=== PATIENT | male | born 1980 | race Caucasian/White ===

== ENCOUNTER 2022-08-25 02:12 | Emergency (ER) | payer MEDICARE, SELFPAY ==
[2022-08-25 02:25] VITALS: BP 137/110; PULSE 123; RESP 18; TEMP 37.1; O2SAT 96; BMI 23.1
[2022-08-25 02:27] VITALS: BP 153/96; PULSE 115; RESP 18; O2SAT 98
[2022-08-25 02:40] LABS: Basophils % 0.1 %; Eosinophils % 0.1 %; Hematocrit 38.9 % (42.0-52.0); Hemoglobin 13.5 g/dL (11.7-16.6); Lymphocytes # 0.2 10^3/uL (0.8-4.8); Lymphocytes % 0.9 %; Mean Corpuscular HGB Conc 34.7 g/dL (30.0-36.0); Mean Corpuscular Hemoglobin 27.8 pg (28.0-34.0); Mean Corpuscular Volume 80.2 fl (80-94); Mean Platelet Volume 9.1 fL (7.4-10.4); Monocytes # 0.8 10^3/uL (0.2-0.9); Neutrophils # 24.84 10^3/uL (1.8-7.7); Neutrophils % 95.5 %; Nucleated Red Blood Cells % 0 %; Platelet Count 672 10^3/cmm (130-400); Red Blood Count 4.85 10^6/uL (4.1-5.3); Red Cell Distribution Width 13.4 % (12.1-15.1)
--- NOTE | 2022-08-25 02:40 | ED_ITS ---
Documented by User: RYAN Beasley 08/25/22 03:34 HPI - Nausea/Vomiting/Diarrhea General: Chief complaint: Nausea/Vomiting/Diarrhea Stated complaint: vomiting Time Seen by Provider: 08/25/22 02:34 History of Present Illness: Patient is a 42-year-old male that comes to the ED with nausea and vomiting. Patient says this is a common occurrence for him and he has the cyclic vomiting episodes once every couple months. Past medical history of chronic kidney disease and states that he used to be on dialysis but is not currently on it anymore. He states that his creatinine level is usually around 5 or 6. This current episode started yesterday and he was unable to keep any food or fluids down. He went to the emergency department in [facility] this morning and they checked him out and got his symptoms under control he was discharged home. He rode up with his family here to [place] this evening and his nausea and vomiting symptoms started coming back. He forgot to bring his Zofran and he left it at home back in [facility]. He denies any fevers, chest pain, shortness of breath, abdominal pain, bladder or bowel symptoms. He is a chronic marijuana user and doctors of told him in the past that it could be the cause of his cyclic vomiting episodes. Associated nausea: Yes Associated symtoms: Reports nausea; Denies change in vision, chest pain, dysuria, fatigue, headache(s) or palpitations Review of Systems 2 Const: Denies: fever(s), chills or fatigue Eyes: Denies: change in vision or eye discomfort ENMT: Denies: throat pain, odynophagia, nasal discharge or nasal congestion Card: Denies: chest pain, palpitations, edema, swelling of feet/ankles, dyspnea on exertion or orthopnea Resp: Denies: dyspnea, productive cough or non-productive cough GI: Reports: nausea and vomiting; Denies: abdominal pain, diarrhea, constipation or hematochezia : Denies: flank pain, difficulty urinating, dysuria or hematuria Musc: Denies: neck pain, back pain or extremity swelling Skin/Breast: Denies: rash or new lesions Neuro: Denies: headache(s), numbness in extremities or weakness in extremities [facility] ED PFSH: Medical History (Updated 07/01/23 @ 03:32 by RYAN Beasley) CKD (chronic kidney disease) Cyclic vomiting syndrome No pertinent family history Physical Exam Narrative: EXAM NARRATIVE: Patient appears nontoxic and in no acute distress or pain. He sitting comfortably on exam bed when in the room and no active vomiting seen. Const: COMMON NORMALS: no acute distress, patient oriented x3 and alert GENERAL APPEARANCE: cooperative and comfortable HENMT: COMMON NORMALS: normocephalic HEAD & SCALP: normocephalic MOUTH: Normal oral and palatal mucosa present THROAT: posterior oropharynx normal and uvula midline Neck/C-Spine: COMMON NORMALS: supple GENERAL: Yes normal visual inspection Resp: COMMON NORMALS: normal respiratory effort, No retractions, No use of accessory muscles and clear to auscultation bilaterally AUSCULTATION: clear to auscultation bilaterally Cardio: COMMON NORMALS: regular rate, regular rhythm, S1 normal heart sound p resent, S2 normal heart sound present, No gallops present (Cardio), No clicks present (Cardio), No murmurs present (Cardio) and Peripheral pulses 2+ throughout RATE: regular rate RHYTHM: regular rhythm HEART SOUNDS: S1 normal heart sound present and S2 normal heart sound present PERIPHERAL PULSES: Peripheral pulses 2+ throughout GI: COMMON NORMALS: Normal to inspection, nondistended, normoactive bowel sounds present, Soft to palpation, non-tender and no masses PALPATION: Yes Soft to palpation : COMMON NORMALS: Yes no CVA tenderness BLADDER/KIDNEY EXAM: Yes no CVA tenderness Back/Pelvis: COMMON NORMALS: no CVA tenderness Extremity: COMMON NORMALS: normal to inspection Neuro: COMMON NORMALS: patient oriented x3 SENSORIUM/ORIENTATION: Yes alert GAIT: Yes Normal gait present Skin: GENERAL SKIN EXAM: dry skin Course Vital Signs: Vital signs: Vital Signs Temperature 98.7 F 08/25/22 02:25 Pulse Rate 115 H 08/25/22 02:27 Respiratory Rate 18 08/25/22 02:27 Blood Pressure 153/96 08/25/22 02:27 Pulse Oximetry 98 08/25/22 02:27 Oxygen Delivery Me thod Room Air 08/25/22 02:27 MDM - Nausea/Vomiting/Diarrhea Medical Decision Making Patient is a 42-year-old male that comes to the ED with nausea and vomiting. Patient says this is a common occurrence for him and he has the cyclic vomiting episodes once every couple months. Past medical history of chronic kidney disease and states that he used to be on dialysis but is not currently on it anymore. He states that his creatinine level is usually around 5 or 6. This current episode started yesterday and he was unable to keep any food or fluids down. He went to the emergency department in [facility] this morning and they checked him out and got his symptoms under control he was discharged home. He rode up with his family here to [place] this evening and his nausea and vomiting symptoms started coming back. He forgot to bring his Zofran and he left it at home back in [facility]. He denies any fevers, chest pain, shortness of breath, abdominal pain, bladder or bowel symptoms. He is a chronic marijuana user and doctors of told him in the past that it could be the cause of his cyclic vomiting episodes. Pulse 123 but the rest of vitals are stable. Patient appears nontoxic in no acute distress or pain. He is sitting comfortably on exam bed when I entered the room and he is having no active vom iting. No CVA tenderness and no abdominal tenderness noted. Rest of exam is benign. White blood cell count is 26, creatinine of 7.1 and BUN of 57. Rest of CBC and CMP are unremarkable. UA was unremarkable. His labs from approximately less than 24 hours ago at [facility] in [facility] on August 24, 2022 a white blood cell count of 22.2, creatinine of 6.4 and BUN of 52, so there has not been much of an acute change from then. I talked with patient about the possibility of being admitted here for dialysis, but patient refused. He refuses dialysis and admission. Patient says he has a appointment with his kidney doctor on August 27, 2022. I discussed patient case with Dr. Callejas and he agreed with plan. He was diagnosed with cyclic vomiting syndrome and CKD and was stable for discharge home. Patient was signed out to Dr. Callejas. Patient started on 2 L of IV fluids and gi jossue Zofran and so far his symptoms are improving and he is not having any episodes of emesis. Patient pending discharge if symptoms are controlled once second liter of fluids is complete. Medical Records I reviewed the patient's medical records. member services coordinator contacted [facility] in [facility] which is where patient was seen in the ED for same complaint on the morning of August 24, 2022. We requested his labs from that morning and they gave us a verbal report. Patient's white blood cell count was 22.2, creatinine 6.4, BUN of 52. Lab Data I reviewed the patient's lab results. 08/25/22 02:30 08/25/22 02:30 Laboratory Results WBC 26.0 10^3/uL (4.0-10.0) H 08/25/22 02:30 RBC 4.85 10^6/uL (4.1-5.3) 08/25/22 02:30 Hgb 13.5 g/dL (11.7-16.6) 08/25/22 02:30 Hct 38.9 % (42.0-52.0) L 08/25/22 02:30 MCV 80.2 fl (80-94) 08/25/22 02:30 MCH 27.8 pg (28.0-34.0) L 08/25/22 02:30 MCHC 34.7 g/dL (30.0-36.0) 08/25/22 02:30 RDW 13.4 % (12.1-15.1) 08/25/22 02:30 Plt Count 672 10^3/cmm (130-400) H 08/25/22 02:30 MPV 9.1 fL (7.4-10.4) 08/25/22 02:30 Neut % (Auto) 95.5 % 08/25/22 02:30 Lymph % (Auto) 0.9 % 08/25/22 02:30 [place] % (Auto) 3.0 % 08/25/22 02:30 Eos % (Auto) 0.1 % 08/25/22 02:30 Baso % (Auto) 0.1 % 08/25/22 02:30 Neut # (Auto) 24.84 10^3/uL (1.8-7.7) H 08/25/22 02:30 Lymph # (Auto) 0.2 10^3/uL (0.8-4.8) L 08/25/22 02:30 [place] # (Auto) 0.8 10^3/uL (0.2-0.9) 08/25/22 02:30 Eos # (Auto) 0.0 10^3/uL (0.0-0.8) 08/25/22 02:30 Baso # (Auto) 0.0 10^3/uL (0.0-0.1) 08/25/22 02:30 Nucleated RBC % (auto) 0 % 08/25/22 02:30 Nucleated RBCs # 0.0 /100WBC 08/25/22 02:30 Sodium 137 mmol/L (136-145) 08/25/22 02:30 Potassium 3.4 mmol/L (3.5-5.1) L 08/25/22 02:30 Chloride 87 mmol/L (98-107) L 08/25/22 02:30 Carbon Dioxide 25 mmol/L (22-29) 08/25/22 02:30 Anion Gap 28.4 (5-19) H 08/25/22 02:30 BUN 57 mg/dL (6-20) H 08/25/22 02:30 Creatinine 7.1 mg/dL (0.7-1.2) H* 08/25/22 02:30 GFR Calculation 8.6 mL/min (90-130) L 08/25/22 02:30 Glucose 198 mg/dL (65-115) H 08/25/22 02:30 Calculated Osmolality 305 mOsm/kg (285-295) H 08/25/22 02:30 Calcium 10.5 mg/dL (8.5-10.5) 08/25/22 02:30 Total Bilirubin 0.5 mg/dL (0.15-1.2) 08/25/22 02:30 AST 30 U/L (0-40) 08/25/22 02:30 ALT 14 U/L (0-41) 08/25/22 02:30 Alkaline Phosphatase 141 U/L (40-130) H 08/25/22 02:30 Total Protein 8.4 g/dL (6.6-8.7) 08/25/22 02:30 Albumin 5.1 g/dL (3.5-5.2) 08/25/22 02:30 Globulin 3.3 g/dL (1.3-4.6) 08/25/22 02:30 Lipase 127 U/L (13-60) H 08/25/22 02:30 Urine Color Yellow (Yellow) 08/25/22 03:11 Urine Appearance Clear (CLEAR) 08/25/22 03:11 Urine pH 6 (5-7) 08/25/22 03:11 Ur Specific [place] 1.010 (1.005-1.030) 08/25/22 03:11 Urine Protein 3+ (Negative) H 08/25/22 03:11 Urine Glucose (UA) Norm (Normal) 08/25/22 03:11 Urine Ketones 1+ (Negative) H 08/25/22 03:11 Urine Blood 3+ (Negative) H 08/25/22 03:11 Urine Nitrate Negative (Negative) 08/25/22 03:11 Urine Bilirubin Neg (Negative) 08/25/22 03:11 Urine Urobilinogen Norm mg/dL (Negative) 08/25/22 03:11 Ur Leukocyte Esterase Negative (Negative) 08/25/22 03:11 Urine RBC 5-10 /hpf (0-2) H 08/25/22 03:11 Urine WBC 0-4 /hpf (0-5) H 08/25/22 03:11 Ur Squamous Epith Cells 0-4 /hpf (0-5) H 08/25/22 03:11 Amorphous Sediment Not Reportable 08/25/22 03:11 Urine Bacteria Trace /hpf (NONE) 08/25/22 03:11 Discharge Plan Discharge Patient Disposition: Home Clinical Impression: Cyclic vomiting syndrome, CKD (chronic kidney disease) Condition: Stable Discharge Orders: Discharge ED (Routine); Ordered 08/25/22 Ordered By: Shakeel Callejas Referrals: Rosalia Funk MD [Primary Care Provider] - Discharge Diet: Advance as tolerated and Clear Liquid Discharge Activity: Increase activity as tolerated Patient Instructions: Chronic Kidney Disease (ED), Cyclic Vomiting Syndrome (ED) Activity Restrictions/Additional Instructions: Follow-up with your doctor at your scheduled appointment on August 27 for follow- up. Continue taking all home medications as previously prescribed. Clear liquid diet for the next 12 to 24 hours and slowly advance diet as tolerated. Return to the ER or your medical provider if condition worsens. Please read and understand discharge instructions. Thank you for choosing [facility] for your healthcare needs today. Please realize this is an emergency room and that we are providing you with a medical screening exam and this may not be complete and all inclusive of all the testing and or work up that you may need to determine your ailment or severity of your illness. It is very important that you follow up as instructed or that you return to the Emergency Department should you have concerns or if your condition changes or worsens in any way. Coding Level of Care Code ED Trailer Steerer for Charlie Fwd Documented by User: Shakeel Callejas, 08/25/22 04:06 HPI - Nausea/Vomiting/Diarrhea General: Chief complaint: Nausea/Vomiting/Diarrhea Stated complaint: vomiting Time Seen by Provider: 08/25/22 02:34 [facility] ED PFSH: Medical History (Updated 08/25/22 @ 03:32 by RYAN Beasley) CKD (chronic kidney disease) Cyclic vomiting syndrome No pertinent family history Course Vital Signs: Vital signs: Vital Signs Temperature 98.7 F 08/25/22 02:25 Pulse Rate 115 H 08/25/22 02:27 Respiratory Rate 18 08/25/22 02:27 Blood Pressure 153/96 08/25/22 02:27 Pulse Oximetry 98 08/25/22 02:27 Oxygen Delivery Me thod Room Air 08/25/22 02:27 MDM - Nausea/Vomiting/Diarrhea Medical Decision Making Patient is a 42-year-old male that comes to the ED with nausea and vomiting. Patient says this is a common occurrence for him and he has the cyclic vomiting episodes once every couple months. Past medical history of chronic kidney disease and states that he used to be on dialysis but is not currently on it anymore. He states that his creatinine level is usually around 5 or 6. This current episode started yesterday and he was unable to keep any food or fluids down. He went to the emergency department in [facility] this morning and they checked him out and got his symptoms under control he was discharged home. He rode up with his family here to [place] this evening and his nausea and vomiting symptoms started coming back. He forgot to bring his Zofran and he left it at home back in [facility]. He denies any fevers, chest pain, shortness of breath, abdominal pain, bladder or bowel symptoms. He is a chronic marijuana user and doctors of told him in the past that it could be the cause of his cyclic vomiting episodes. Pulse 123 but the rest of vitals are stable. Patient appears nontoxic in no acute distress or pain. He is sitting comfortably on exam bed when I entered the room and he is having no active vom iting. No CVA tenderness and no abdominal tenderness noted. Rest of exam is benign. White blood cell count is 26, creatinine of 7.1 and BUN of 57. Rest of CBC and CMP are unremarkable. UA was unremarkable. His labs from approximately less than 24 hours ago at [facility] in [facility] on August 24, 2022 a white blood cell count of 22.2, creatinine of 6.4 and BUN of 52, so there has not been much of an acute change from then. I talked with patient about the possibility of being admitted here for dialysis, but patient refused. He refuses dialysis and admission. Patient says he has a appointment with his kidney doctor on August 27, 2022. I discussed patient case with Dr. Callejas and he agreed with plan. He was diagnosed with cyclic vomiting syndrome and CKD and was stable for discharge home. Patient was signed out to Dr. Callejas. Patient started on 2 L of IV fluids and gi jossue Zofran and so far his symptoms are improving and he is not having any episodes of emesis. Patient pending discharge if symptoms are controlled once second liter of fluids is complete. This patient was originally seen by Mr. Shirley PA-C.? I agree with his history, evaluation, and treatment. Lab Data 08/25/22 02:30 08/25/22 02:30 Laboratory Results WBC 26.0 10^3/uL (4.0-10.0) H 08/25/22 02:30 RBC 4.85 10^6/uL (4.1-5.3) 08/25/22 02:30 Hgb 13.5 g/dL (11.7-16.6) 08/25/22 02:30 Hct 38.9 % (42.0-52.0) L 08/25/22 02:30 MCV 80.2 fl (80-94) 08/25/22 02:30 MCH 27.8 pg (28.0-34.0) L 08/25/22 02:30 MCHC 34.7 g/dL (30.0-36.0) 08/25/22 02:30 RDW 13.4 % (12.1-15.1) 08/25/22 02:30 Plt Count 672 10^3/cmm (130-400) H 08/25/22 02:30 MPV 9.1 fL (7.4-10.4) 08/25/22 02:30 Neut % (Auto) 95.5 % 08/25/22 02:30 Lymph % (Auto) 0.9 % 08/25/22 02:30 [place] % (Auto) 3.0 % 08/25/22 02:30 Eos % (Auto) 0.1 % 08/25/22 02:30 Baso % (Auto) 0.1 % 08/25/22 02:30 Neut # (Auto) 24.84 10^3/uL (1.8-7.7) H 08/25/22 02:30 Lymph # (Auto) 0.2 10^3/uL (0.8-4.8) L 08/25/22 02:30 [place] # (Auto) 0.8 10^3/uL (0.2-0.9) 08/25/22 02:30 Eos # (Auto) 0.0 10^3/uL (0.0-0.8) 08/25/22 02:30 Baso # (Auto) 0.0 10^3/uL (0.0-0.1) 08/25/22 02:30 Nucleated RBC % (auto) 0 % 08/25/22 02:30 Nucleated RBCs # 0.0 /100WBC 08/25/22 02:30 Sodium 137 mmol/L (136-145) 08/25/22 02:30 Potassium 3.4 mmol/L (3.5-5.1) L 08/25/22 02:30 Chloride 87 mmol/L (98-107) L 08/25/22 02:30 Carbon Dioxide 25 mmol/L (22-29) 08/25/22 02:30 Anion Gap 28.4 (5-19) H 08/25/22 02:30 BUN 57 mg/dL (6-20) H 08/25/22 02:30 Creatinine 7.1 mg/dL (0.7-1.2) H* 08/25/22 02:30 GFR Calculation 8.6 mL/min (90-130) L 08/25/22 02:30 Glucose 198 mg/dL (65-115) H 08/25/22 02:30 Calculated Osmolality 305 mOsm/kg (285-295) H 08/25/22 02:30 Calcium 10.5 mg/dL (8.5-10.5) 08/25/22 02:30 Total Bilirubin 0.5 mg/dL (0.15-1.2) 08/25/22 02:30 AST 30 U/L (0-40) 08/25/22 02:30 ALT 14 U/L (0-41) 08/25/22 02:30 Alkaline Phosphatase 141 U/L (40-130) H 08/25/22 02:30 Total Protein 8.4 g/dL (6.6-8.7) 08/25/22 02:30 Albumin 5.1 g/dL (3.5-5.2) 08/25/22 02:30 Globulin 3.3 g/dL (1.3-4.6) 08/25/22 02:30 Lipase 127 U/L (13-60) H 08/25/22 02:30 Urine Color Yellow (Yellow) 08/25/22 03:11 Urine Appearance Clear (CLEAR) 08/25/22 03:11 Urine pH 6 (5-7) 08/25/22 03:11 Ur Specific [place] 1.010 (1.005-1.030) 08/25/22 03:11 Urine Protein 3+ (Negative) H 08/25/22 03:11 Urine Glucose (UA) Norm (Normal) 08/25/22 03:11 Urine Ketones 1+ (Negative) H 08/25/22 03:11 Urine Blood 3+ (Negative) H 08/25/22 03:11 Urine Nitrate Negative (Negative) 08/25/22 03:11 Urine Bilirubin Neg (Negative) 08/25/22 03:11 Urine Urobilinogen Norm mg/dL (Negative) 08/25/22 03:11 Ur Leukocyte Esterase Negative (Negative) 08/25/22 03:11 Urine RBC 5-10 /hpf (0-2) H 08/25/22 03:11 Urine WBC 0-4 /hpf (0-5) H 08/25/22 03:11 Ur Squamous Epith Cells 0-4 /hpf (0-5) H 08/25/22 03:11 Amorphous Sediment Not Reportable 08/25/22 03:11 Urine Bacteria Trace /hpf (NONE) 08/25/22 03:11 Discharge Plan Discharge Patient Disposition: Home Clinical Impression: Cyclic vomiting syndrome, CKD (chronic kidney disease) Condition: Stable Discharge Orders: Discharge ED (Routine); Ordered 08/25/22 Ordered By: Shakeel Callejas Referrals: Rosalia Funk MD [Primary Care Provider] - Discharge Diet: Advance as tolerated and Clear Liquid Discharge Activity: Increase activity as tolerated Patient Instructions: Chronic Kidney Disease (ED), Cyclic Vomiting Syndrome (ED) Activity Restrictions/Additional Instructions: Follow-up with your doctor at your scheduled appointment on August 27 for follow- up. Continue taking all home medications as previously prescribed. Clear liquid diet for the next 12 to 24 hours and slowly advance diet as tolerated. Return to the ER or your medical provider if condition worsens. Please read and understand discharge instructions. Thank you for choosing [facility] for your healthcare needs today. Please realize this is an emergency room and that we are providing you with a medical screening exam and this may not be complete and all inclusive of all the testing and or work up that you may need to determine your ailment or severity of your illness. It is very important that you follow up as instructed or that you return to the Emergency Department should you have concerns or if your condition changes or worsens in any way. Coding Level of Care Code ED Trailer Steerer for Charlie Simons
[2022-08-25] MEDS: sodium chloride 0.9% 1,000 ML 999 ML IV ×2 (02:49→03:35)
[2022-08-25] MEDS: ondansetron 2 mg/ML SDV 2 mL 4 MG IVP (02:50)
[2022-08-25 02:58] LABS: Alanine Aminotransferase 14 U/L (0-41); Albumin Level 5.1 g/dL (3.5-5.2); Alkaline Phosphatase 141 U/L (40-130); Anion Gap 28.4 (5-19); Aspartate Amino Transferase 30 U/L (0-40); Blood Urea Nitrogen 57 mg/dL (6-20); Calcium 10.5 mg/dL (8.5-10.5); Carbon Dioxide 25 mmol/L (22-29); Chloride 87 mmol/L (98-107); Globulin 3.3 g/dL (1.3-4.6); Glomerular Filtration Rate 8.6 mL/min (90-130); Glucose 198 mg/dL (65-115); Lipase 127 U/L (13-60); Osmolality Calculated 305 mOsm/kg (285-295); Potassium 3.4 mmol/L (3.5-5.1); Sodium 137 mmol/L (136-145); Total Bilirubin 0.5 mg/dL (0.15-1.2); Total Protein 8.4 g/dL (6.6-8.7)
[2022-08-25 03:22] LABS: Urine Appearance Clear (CLEAR); Urine Color Yellow (Yellow); pH Urine 6 (5-7)
[2022-08-25 03:23] LABS: Add Urine Microscopic? YES; Bilirubin Urine Neg (Negative); Blood Urine 3+ (Negative); Glucose Urine UA Norm (Normal); Ketones Urine 1+ (Negative); Leukocyte Esterase Urine Negative (Negative); Nitrate Urine Negative (Negative); Protein Urine 3+ (Negative); Urobilinogen Urine Norm (Negative)
[2022-08-25 03:25] LABS: Bacteria Urine TRACE /hpf; Squamous Epithelial Cell Urine 0-4 /hpf (0-5); WBC Urine 0-4 /hpf (0-5)
[2022-08-25 05:07] VITALS: BP 134/74; PULSE 100; RESP 16; O2SAT 96
== END 2022-08-25 05:06 | disposition home or self-care (01) ==
PROVIDERS: Physician Assistant; Emergency Provider Emergency Medicine; PCP Family Medicine
DX: G43.A0 Cyclical vomiting, in migraine, not intractable (principal); N18.9 Chronic kidney disease, unspecified
CPT/HCPCS: 80053; 81001; 83690; 85025; 96361; 96374; 99284; J2405; J7030